=== PATIENT | male | born 1995 | race Caucasian/White ===

== ENCOUNTER 2022-12-17 19:55 | Emergency (ER) | payer OTHER ==
[2022-12-17] MEDS ORDERED: HYDROmorphone 1 MG/ML CARPUJECT IM STA (20:12)
--- NOTE | 2022-12-17 20:42 | XRAY Report ---
PROCEDURE: Shoulder 3 View RT INDICATIONS: fell/ injured R SHOULDER/ PAIN + TENDERNESS TECHNIQUE: 3 views of the shoulder were acquired. COMPARISON: None. FINDINGS: Bones: Anterior-inferior dislocation of the humeral head at the glenohumeral joint. No suspicious b karl lesions. Visualized ribs appear intact. Soft tissues: No suspicious soft tissue calcifications. The visualized lungs are within normal limi ts. IMPRESSION: Anterior-inferior shoulder dislocation. Reviewed by: Josefa Mayes MD on 12/17/2022 8:41 PM PDT Approved by: Josefa Mayes MD on 12/17/2022 8:41 PM PDT Station ID: [id number]
[2022-12-17] MEDS ORDERED: MIDAZOLAM 10 MG/2 ML VIAL IM STA (20:46)
[2022-12-17] MEDS ORDERED: KETOROLAC 30 MG/ML VIAL IM STA (20:51)
[2022-12-17] MEDS ORDERED: MIDAZOLAM 10 MG/5 ML UDC PO STA (20:57)
--- NOTE | 2022-12-17 21:18 | ED Physician Documentation ---
History of Present Illness - Stated complaint Stated Complaint: R SHOULDER INJ - Chief complaint Chief Complaint: Ext Problem - History obtained from History obtained from: Patient - Additonal information Additional information: 27yM previously healthy p/w R shoulder deformity and sudden onset pain after hitting it playing flag football about 2 hours prior to arrival. Denies pain anywhere else. Never had a shoulder dislocation before PD PAST MEDICAL HISTORY - Past Medical History Past Medical History: No Cardiovascular: None Respiratory: None Neuro: None Endocrine/Autoimmune: None GI: None : None HEENT: None Psych: None Musculoskeletal: None Derm: None - Past Surgical History Past Surgical History: Yes - Present Medications Home Medications: Ambulatory Orders Medication Instructions Recorded Confirmed No Known Home Medications 12/17/22 12/17/22 - Allergies Allergies/Adverse Reactions: Allergies Allergy/AdvReac Type Severity Reaction Status Date / Time No Known Drug Allergies Allergy Verified 12/17/22 20:07 - Social History Does the pt smoke?: No Smoking Status: Never smoker Does the pt drink ETOH?: No Does the pt have substance abuse?: No - Immunizations Immunizations are current?: Yes - POLST Patient has POLST: No PD ED PE NORMAL - Vitals Vital signs reviewed: Yes - General General: Alert and oriented X 3, No acute distress, Well developed/nourished - HEENT HEENT: Atraumatic, PERRL, EOMI - Derm Derm: Normal color, Warm and dry - Extremities Extremities: Other (Right shoulder deformity with scalloping of glenohumeral joint. Right upper extremity 2+ radial pulse with normal sensation and movement distal aspect) Results - Vitals Vitals: Vital Signs - 24 hr 12/17/22 12/17/22 19:57 21:22 Temperature 36.9 C Heart Rate 85 68 Respiratory 17 16 Rate Blood Pressure 129/101 H 151/102 H O2 Saturation 100 97 Oxygen O2 Source Room air Procedures - Reduction Body part reduced: Right, Shoulder Anesthesia: Dilaudid, Other (toradol, versed) Shoulder reduction technique: Scapular manipulation, Traction - counter tract Reduction aftercare: NV intact, Xray confirms reduction, Alignment improved, Sling, Patient tolerated well PD Medical Decision Making - ED course ED course: 27-year-old man presents with right shoulder dislocation, confirmed on xray by my wet read, after playing flag football and hitting it. Plan to reduce and repeat x-ray. xpt xray wet read - s/p reduction. no deformity. He will be discharged with a sling and follow-up outpatient with orthopedics . Departure - Departure Disposition: 01 Home, Self Care Clinical Impression: Shoulder dislocation Condition: Stable Instructions: ED Dislocation Shoulder Redu, ED Immobilizer Shoulder Follow-Up: Rodo Moreno MD [Provider Admit Priv/Credential] - Comments: You were seen in the emergency department for shoulder dislocation. Please follow-up with orthopedics and return to the emergency department if you have any new or worsening symptoms or other concerns. Forms: PCP List
[2022-12-17 21:23] VITALS: BP 151/102; O2SAT 97
--- NOTE | 2022-12-17 23:01 | XRAY Report ---
PROCEDURE: Shoulder 2 View RT INDICATIONS: post reduction TECHNIQUE: 3 views of the shoulder were acquired. COMPARISON: X-ray right shoulder, 12/17/2022. FINDINGS: Bones: Anterior-inferior shoulder dislocation is reduced. Question Hill-Sachs for medial femoral hea d. No suspicious bony lesions. Visualized ribs appear intact. Soft tissues: No suspicious soft tissue calcifications. The visualized lungs are within normal limi ts. IMPRESSION: Shoulder dislocation is reduced. Suspect Hill-Sachs deformity of humeral head. Reviewed by: Josefa Mayes MD on 12/17/2022 11:00 PM PDT Approved by: Josefa Mayes MD on 12/17/2022 11:00 PM PDT Station ID: [id number]
== END 2022-12-17 22:24 | disposition home or self-care (01) ==
LOC: ED 19:55
DX: S43.014A Anterior dislocation of right humerus, initial encounter (principal); X58.XXXA Exposure to other specified factors, initial encounter; Y93.62 Activity, american flag or touch football
CPT/HCPCS: 23650; 73030; 96372; 99283; A9270; J1170